=== PATIENT | male | born 1995 | race Two or more races ===

== ENCOUNTER 2021-04-23 17:16 | Emergency (ER) | payer MEDICAID, OTHER ==
[~2021-04-23] VITALS: Ht 188 cm; Wt 104.3 kg
[2021-04-23] MEDS ORDERED: BACITRACIN TOP OINT 1 UD PKG TOP ONE (18:00)
[2021-04-23] MEDS ORDERED: traMADol HCL 50 MG TAB PO ONE (18:45)
[2021-04-23 19:50] VITALS: BP 140/62
== END 2021-04-23 19:52 | disposition home or self-care (01) ==
LOC: ER 17:16
DX: S50.12XA Contusion of left forearm, initial encounter (principal); X58.XXXA Exposure to other specified factors, initial encounter; Y93.89 Activity, other specified; Y92.89 Other specified places as the place of occurrence of the external cause; Y99.8 Other external cause status
CPT/HCPCS: 73090